=== PATIENT | male | born 1985 ===

== ENCOUNTER 2024-03-31 17:51 | Inpatient (IN) | payer OTHER, SELFPAY ==
--- NOTE | ~2024-03-31 | XR_ITS ---
EXAMINATION: XR HAND, RIGHT CLINICAL INFORMATION: Boxer's fracture. Continued pain one month after injury. COMPARISON: None available. TECHNIQUE: PA, lateral, and oblique views of the right hand. FINDINGS: There is a comminuted likely intra-articular fracture of the proximal fifth metacarpal. There is prominent lucency along the radial aspect of the metacarpal near the fracture which could reflect additional osteolysis. Possible posterior displacement of the distal fragment is suggested on the lateral projection. The remaining bones joints and soft tissues are unremarkable. XR/XR hand RT 2V IMPRESSION: Comminuted likely intra-articular fracture the proximal fifth metacarpal. No signs of fracture healing. Possible bone resorption/osteolysis in the area the fracture.
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
[2024-03-31 19:19] VITALS: BMI 57.8
[2024-03-31 22:00] VITALS: BP 119/75; PULSE 86; RESP 16; TEMP 37; O2SAT 98
[2024-03-31] MEDS: Milk of Magnesia 30 ML ORAL.SUSP PO (22:25)
[2024-03-31] MEDS: traZODone HCL 50 MG TABLET PO (22:25)
[2024-03-31] MEDS: hydrOXYzine HCL 25 MG TABLET PO (22:25)
[2024-04-01 07:00] VITALS: BMI 26.1
[2024-04-01 07:46] VITALS: BP 118/71; PULSE 81; RESP 16; TEMP 36.6; O2SAT 98
[2024-04-01] MEDS: hydrOXYzine HCL 25 MG TABLET PO (08:31)
[2024-04-01 08:51] LABS: Alanine Aminotransferase 54 U/L (0-40); Albumin Level 4.5 g/dL (3.5-5.0); Alkaline Phosphatase 112 U/L (39-117); Anion Gap 14 (12-20); Aspartate Amino Transferase 23 U/L (5-37); Bilirubin Total 0.2 mg/dL (0.0-1.0); Blood Urea Nitrogen 17 mg/dL (9-16); Calcium 9.4 mg/dL (8.4-10.2); Carbon Dioxide 25 mmol/L (22-29); Chloride 105 mmol/L (96-108); Cholesterol 181 mg/dL (<200); Creatinine Clr Calc Pharmacy 119.3; Estimated Glomerular Filt Rate > 60; Glucose Fasting 143 mg/dL (60-99); HDL Cholesterol 52 mg/dL (>40); LDL Cholesterol Calculated 97 mg/dL (<100); Potassium 3.7 mmol/L (3.3-5.1); Sodium 140 mmol/L (135-145); Total Protein 7.2 g/dL (6.5-8.0); Triglycerides 164 mg/dL (<150)
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
--- NOTE | 2024-04-01 11:28 | HO.PM.IMCN ---
History of Present Illness Data of Consult Service Date: 04/01/24 Primary Care Provider: Unknown Physician HPI Reason for consult: Admission H&P Pt is a 38-year-old male with a PMH significant for?hemophilia A, anxiety, depression, and bipolar disorder who is admitted to [facility] psychiatry unit for increasing depression with suicidal ideation. Patient was initially placed [facility] though sent back to the ED as [facility] was unable to administer proper medications for pt with hemophilia A should the need arise. Medical consult for admission H&P. ?Patient reports minor right hand pain that has been ongoing since right hand fracture sustained after punching a wall 2 weeks prior. Initially presented to the ED and was given a soft cast, the patient has yet to follow-up for additional imaging. No recent bleeding, though notes approximately 1 month ago cut himself in a suicide attempt on left forearm. No complications. Also reports has been feeling fatigued with low energy for the past few months. Patient has a PMH of hemophilia A on Advate prn. Follows with Dr. Mathis in Hematology at [facility]; last seen over 1 year ago. Denies chest pain/pressure, palpitations. No shortness a breath. Denies fever, chills, nausea, vomiting, abdominal pain. Chronic headaches. Labs reviewed, grossly unremarkable in largely WNL. H&H at [facility] 9.0/28.4. Vitals stable. Review of Systems Review of Systems: Right hand pain Chronic fatigue Chronic intermittent headaches PMFSH Medical History (Updated 04/01/24 @ 14:05 by TIKA Restrepo) Bipolar disorder Depression Anxiety Anemia Hemophilia A Social History Household Members: None Housing: Homeless Do you presently have visiting nurse or other home services: No Patient Tobacco Use Status: Former Tobacco user Tobacco use type: Cigarette Smoked in Last 30 Days: No e-Cigarette/Vaping Use: Former Use Patient Interested in Nicotine Replacement: No Patient Given Instructions on How to Stop Smoking: No Second Hand Smoke Exposure: No Use of substances other than those prescribed or required for medical reasons: Yes Substance Use Type: Marijuana Substance Use Frequency: Daily Last Used Substance: Just Prior to Admission Currently Displaying Signs/Symptoms of Drug Intoxication Withdrawal: No Any prior treatment program specific to substance use: No Have you been hit, kicked, punched, or otherwise hurt by someone within the past year? If so, by whom?: No Do you feel safe in your current relationship?: No Current Relationship Is there a partner from a previous relationship who is making you feel unsafe now?: No Are you made to feel afraid or neglected: No Advance Directives: No Advance Directives Information Provided: No Do you have thoughts of harming others: None Do you have a plan to hurt others: No Plan Recently lost weight without trying: No Eating poorly because of decreased appetite: No Nutrition Risks: No Nutritional Risk Poor oral hygiene: No Meds Allergies Allergy/AdvReac Type Severity Reaction Status Date / Time No Known Allergies Allergy Verified 03/31/24 18:10 Active Medications: Current Medications Acetaminophen (Acetaminophen 325 Mg Tablet) 650 mg PO Q6H PRN PRN Reason: Headache/Pain Mild Scale (1-3) Al Hydroxide/Mg Hydroxide (Magnesium Hydrox/Alum Hydrox 30 Ml Oral.Susp) 30 ml PO Q6H PRN PRN Reason: Heartburn/Nausea Hydroxyzine HCl (Hydroxyzine Hcl 25 Mg Tablet) 25 mg PO Q6H PRN PRN Reason: Anxiety Last Admin: 04/01/24 08:31 Dose: 25 mg Magnesium Hydroxide (Milk Of Magnesia 30 Ml Oral.Susp) 30 ml PO DAILY PRN PRN Reason: Constipation Last Admin: 03/31/24 22:25 Dose: 30 ml Trazodone HCl (Trazodone Hcl 50 Mg Tablet) 50 mg PO BEDTIME MRX1 PRN PRN Reason: Insomnia Last Admin: 03/31/24 22:25 Dose: 50 mg Physical Exam Vital Signs and Narrative: Vital Signs: Last Vital Signs Temp 97.8 F 04/01/24 07:46 Pulse 81 04/01/24 07:46 Resp 16 04/01/24 07:46 BP 118/71 04/01/24 07:46 Pulse Ox 98 04/01/24 07:46 O2 Del Method Room Air 04/01/24 07:46 BMI result Body Mass Index 26.1 General: AOx3, no acute distress Resp: CTA bilaterally CVS: S1, S2, RRR GI: +BS, NT, no distention Skin: Warm, dry Neuro: Cranial nerves II-XII grossly intact bilaterally. Motor grossly intact bilaterally Extremities: No edema. Right hand and wrist in soft cast. Left forearm with well-healed incision. No sign of infection. Psych: Appropriate affect Results Labs 04/01/24 08:14 Labs: Laboratory Results - last 24 hr 04/01/24 08:14 Anion Gap 14 Estim Creat Clear Calc 119.3 Estimated GFR > 60 Fasting Glucose 143 H Calcium 9.4 Total Bilirubin 0.2 AST 23 ALT 54 H Alkaline Phosphatase 112 Total Protein 7.2 Albumin 4.5 Triglycerides 164 H Cholesterol 181 LDL Cholesterol, Calc 97 HDL Cholesterol 52 Assessment and Plan (1) Medical clearance for psychiatric admission: Status: Acute Plan Pt is a 38-year-old male with a PMH significant for?hemophilia A, anxiety, depression, and bipolar disorder who is admitted to [facility] psychiatry unit for increasing depression with suicidal ideation. Patient was initially placed [facility] though sent back to the ED as [facility] was unable to administer proper medications for pt with hemophilia A should the need arise. Medical consult for admission H&P. Mood disorder Plan as per psychiatry Hemophilia A Pt follows with Dr. Mathis in hematology at [facility] On Advate prn which is not on formulary If pt starts bleeding consult with hematology Broken right hand Apparently from punching wall 2 weeks prior Continue soft splint Ortho consult if pt needs follow up while in the hospital Otherwise pt should f/u outpatient for repeat imaging Chronic intermittent headaches Acetaminophen p.r.n. Thank you for allowing us to participate in the care of this patient. Signing off at this time. Please re-consult if any acute complaints or issues arise.
[2024-04-01] MEDS: buPROPion HCL 75 MG TABLET PO (16:08)
[2024-04-01 20:00] VITALS: BP 123/60; PULSE 79; RESP 16; TEMP 37.1; O2SAT 98
[2024-04-01] MEDS: Milk of Magnesia 30 ML ORAL.SUSP PO (20:09)
[2024-04-01] MEDS: hydrOXYzine HCL 50 MG TABLET PO (20:09)
[2024-04-01] MEDS: traZODone HCL 50 MG TABLET PO (22:13)
--- NOTE | 2024-04-02 09:18 | HO.PSYCHPN ---
Subjective Subjective Date of Service: 04/02/24 Reason For Visit: Unspec depressive disorder Subjective Notes: Conditional Voluntary Interim History: Reviewed with Dr. Au. active on unit, social with peers. Pt reports he continues to feeling depressed ; pt stated, I know if I left here today, I would do something to hurt myself. I'm trying to be proactive and would like [facility] services . cable worker helper, Alondra, notified. Pt reports he is trying to be hopeful . pt denies HI/VH/AH. denies any side effects from medication. Medication Compliance: Yes Side effects from medications: No Attending Groups: Intermittent Review of Systems Constitutional: Reports as per HPI Eyes: Reports as per HPI Reports as per HPI Cardiovascular: Reports as per HPI Respiratory: Reports as per HPI Gastrointestinal: Reports as per HPI Genitourinary: Reports as per HPI Musculoskeletal: Reports as per HPI Skin/Breast: Reports as per HPI Reports as per HPI Psychiatric: Reports as per HPI Endocrine: Reports as per HPI Hematologic/Lymphatic: Reports as per HPI Allergic/Immunologic: Reports as per HPI Mental Status Exam Mental Status Exam Narrative: Pt is alert and oriented; behavior is cooperative and calm; dressed in casual attire; mood is described as depressed ; eye contact appropriate; Speech is normal rate, volume and not pressured, moderate speech inpediment; thought process is organized and goal directed; Thought content is on tx; otherwise pertinent to relevant topics and without any delusional content, paranoid ideations or grandiosity; denies HI/VH/AH. Pt reports suicidal ideation with no plan. Diagnostics Vital Signs (24Hr): Vital Signs - 24 hr 04/01/24 20:00 Temperature 98.8 F Pulse Rate 79 Respiratory Rate 16 Blood Pressure 123/60 Pulse Oximetry 98 Oxygen Delivery Method Room Air BMI result Body Mass Index 26.1 Labs 04/01/24 08:14 Labs: Laboratory Results - last 48 hr 04/01/24 08:14 Sodium 140 Potassium 3.7 Chloride 105 Carbon Dioxide 25 Anion Gap 14 BUN 17 H Creatinine 0.80 Estim Creat Clear Calc 119.3 Estimated GFR > 60 Fasting Glucose 143 H Calcium 9.4 Total Bilirubin 0.2 AST 23 ALT 54 H Alkaline Phosphatase 112 Total Protein 7.2 Albumin 4.5 Triglycerides 164 H Cholesterol 181 LDL Cholesterol, Calc 97 HDL Cholesterol 52 Medications Medications Current Medications Acetaminophen (Acetaminophen 325 Mg Tablet) 650 mg PO Q6H PRN PRN Reason: Headache/Pain Mild Scale (1-3) Al Hydroxide/Mg Hydroxide (Magnesium Hydrox/Alum Hydrox 30 Ml Oral.Susp) 30 ml PO Q6H PRN PRN Reason: Heartburn/Nausea Bupropion HCl (Bupropion Hcl 75 Mg Tablet) 75 mg PO BID@0800,1600 [facility] Last Admin: 04/01/24 16:08 Dose: 75 mg Hydroxyzine HCl (Hydroxyzine Hcl 50 Mg Tablet) 50 mg PO TID SUSY Last Admin: 04/01/24 20:09 Dose: 50 mg Magnesium Hydroxide (Milk Of Magnesia 30 Ml Oral.Susp) 30 ml PO DAILY PRN PRN Reason: Constipation Last Admin: 04/01/24 20:09 Dose: 30 ml Trazodone HCl (Trazodone Hcl 50 Mg Tablet) 50 mg PO BEDTIME MRX1 PRN PRN Reason: Insomnia Last Admin: 04/01/24 22:13 Dose: 50 mg Allergies Allergies Allergy/AdvReac Type Severity Reaction Status Date / Time No Known Allergies Allergy Verified 03/31/24 18:10 Assessment & Plan Assessment & Plan (1) MDD (major depressive disorder), recurrent episode, severe: Status: Acute Code(s): F33.2 - Major depressive disorder, recurrent severe without psychotic features (2) PTSD (post-traumatic stress disorder): Status: Acute Code(s): F43.10 - Post-traumatic stress disorder, unspecified (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 Plan: CV 15 minute safety checks encourage groups Start: Wellbutrin 75mg PO BID hydroxyzine 50mg PO TID discharge planning 04/02: active on unit, social with peers. Pt reports he continues to feeling depressed ; pt stated, I know if I left here today, I would do something to hurt myself. I'm trying to be proactive and would like [facility] services . cable worker helper, Alondra, notified. Pt reports he is trying to be hopeful . pt denies HI/VH/AH. denies any side effects from medication. continue current tx plan. Patient educated on: diagnosis, medication risk/benefits and therapeutic strategies Informed Consent: understands Reason for continued inpatient stay Substantial Risk for: harm to self and med/psych decompensation Time Spent With Patient Time: Total time managing care of this patient today _20___ minutes.
[2024-04-02] MEDS: hydrOXYzine HCL 50 MG TABLET PO ×3 (09:33→20:28)
[2024-04-02] MEDS: buPROPion HCL 75 MG TABLET PO ×2 (09:33→16:05)
[2024-04-02 19:52] VITALS: BP 106/60; PULSE 93; RESP 16; TEMP 37.4; O2SAT 98
--- NOTE | 2024-04-03 08:56 | P.PNPSI_ITS ---
Subjective Subjective Date of Service: 04/03/24 Reason For Visit: Unspec depressive disorder Interim History: Patient reports gradual improvement. He reports he was on a higher dose of Hydroxyzine in the past that had been more helpful for anxiety. (50 TID 9AM, 1PM and 5PM) and 100 mg HS and requesting same. Pt reports he is having vivid dreams. Reports trying Prazosin 1 mg but it wasn't effective. Later in the day, informed by RN that patient complained of bloody stool and rectal pain and was requesting a meeting with the hospitalist. pt denies HI/VH/AH. denies any side effects from medication. Review of Systems Review of Systems Right hand pain Chronic fatigue Chronic intermittent headaches Constitutional: Reports as per HPI Eyes: Reports as per HPI Reports as per HPI Cardiovascular: Reports as per HPI Respiratory: Reports as per HPI Gastrointestinal: Reports as per HPI Genitourinary: Reports as per HPI Musculoskeletal: Reports as per HPI Skin/Breast: Reports as per HPI Reports as per HPI Psychiatric: Reports as per HPI Endocrine: Reports as per HPI Hematologic/Lymphatic: Reports as per HPI Allergic/Immunologic: Reports as per HPI Mental Status Exam Mental Status Exam Narrative: Pt is alert and oriented; behavior is cooperative and calm; dressed in casual attire; mood is described as depressed ; eye contact appropriate; Speech is normal rate, volume and not pressured, moderate speech inpediment; thought process is organized and goal directed; Thought content is on tx; otherwise pertinent to relevant topics and without any delusional content, paranoid ideations or grandiosity; denies HI/VH/AH. Pt reports suicidal ideation with no plan. Diagnostics Vital Signs (24Hr): Vital Signs - 24 hr 04/02/24 19:52 Temperature 99.4 F Pulse Rate 93 Respiratory Rate 16 Blood Pressure 106/60 Pulse Oximetry 98 Oxygen Delivery Method Room Air BMI result Body Mass Index 26.1 Labs 04/01/24 08:14 Medications Medications Current Medications Acetaminophen (Acetaminophen 325 Mg Tablet) 650 mg PO Q6H PRN PRN Reason: Headache/Pain Mild Scale (1-3) Al Hydroxide/Mg Hydroxide (Magnesium Hydrox/Alum Hydrox 30 Ml Oral.Susp) 30 ml PO Q6H PRN PRN Reason: Heartburn/Nausea Bupropion HCl (Bupropion Hcl 75 Mg Tablet) 75 mg PO BID@0800,1600 SUSY Last Admin: 04/02/24 16:05 Dose: 75 mg Hydroxyzine HCl (Hydroxyzine Hcl 50 Mg Tablet) 50 mg PO TID SUSY Last Admin: 04/02/24 20:28 Dose: 50 mg Magnesium Hydroxide (Milk Of Magnesia 30 Ml Oral.Susp) 30 ml PO DAILY PRN PRN Reason: Constipation Last Admin: 04/01/24 20:09 Dose: 30 ml Trazodone HCl (Trazodone Hcl 50 Mg Tablet) 50 mg PO BEDTIME MRX1 PRN PRN Reason: Insomnia Last Admin: 04/01/24 22:13 Dose: 50 mg Allergies Allergies Allergy/AdvReac Type Severity Reaction Status Date / Time No Known Allergies Allergy Verified 03/31/24 18:10 Assessment & Plan Assessment & Plan (1) MDD (major depressive disorder), recurrent episode, severe: Status: Acute Code(s): F33.2 - Major depressive disorder, recurrent severe without psychotic features (2) PTSD (post-traumatic stress disorder): Status: Acute Code(s): F43.10 - Post-traumatic stress disorder, unspecified (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 Plan: CV 15 minute safety checks encourage groups Start: Wellbutrin 75mg PO BID hydroxyzine 50mg PO TID discharge planning 04/02: active on unit, social with peers. Pt reports he continues to feeling depressed ; pt stated, I know if I left here today, I would do something to hurt myself. I'm trying to be proactive and would like [facility] services . bridge maintenance worker, Alondra, notified. Pt reports he is trying to be hopeful . pt denies HI/VH/AH. denies any side effects from medication. continue current tx plan. 04/03: Increase Hydroxyzine to 50 mg TID and 100 mg HS. Hospitalist consult for bloody stools and rectal pain. Reason for continued inpatient stay Substantial Risk for: harm to self and rapid decompensation Time Spent With Patient Time: Total time managing care of this patient today ____ minutes.
[2024-04-03] MEDS: buPROPion HCL 75 MG TABLET PO ×2 (09:27→16:32)
[2024-04-03] MEDS: hydrOXYzine HCL 50 MG TABLET PO ×2 (09:27→15:47)
[2024-04-03 10:30] VITALS: BP 127/70; PULSE 82; RESP 16; TEMP 37; O2SAT 99
[2024-04-03] MEDS: traZODone HCL 50 MG TABLET PO (20:40)
[2024-04-03] MEDS: hydrOXYzine HCL 50 MG TABLET 100 MG PO (20:41)
[2024-04-03 20:45] VITALS: BP 129/80; PULSE 72; RESP 18; TEMP 36.7; O2SAT 99
[2024-04-04 09:00] VITALS: BP 112/55; PULSE 75; RESP 16; TEMP 36.8; O2SAT 97
[2024-04-04] MEDS: buPROPion HCL 75 MG TABLET PO (09:26)
[2024-04-04] MEDS: hydrOXYzine HCL 50 MG TABLET PO ×3 (09:26→17:02)
[2024-04-04] MEDS: Mineral Oil/Petrolatum,White 106 GM Tube 1 APPL TOPICAL (12:53)
[2024-04-04] MEDS: Milk of Magnesia 30 ML ORAL.SUSP PO (14:13)
--- NOTE | 2024-04-04 15:58 | P.PNPSI_ITS ---
Subjective Subjective Date of Service: 04/04/24 Reason For Visit: Unspec depressive disorder Interim History: Patient reports gradual improvement in mood. Complains of vivid dreams and says he tried Prazosin 1 mg but wasn't helpful. He is asking whether we can try a higher dose of Prazosin. Complains of bloody stools. Not new but worried about it. Also complaining of pain in his hand from his boxer's fracture. Complaining of dry feet. Increased Hydroxyzine helped with anxiety. Pt denies HI/VH/AH. denies any side effects from medication. Review of Systems Review of Systems Right hand pain Chronic fatigue Chronic intermittent headaches Constitutional: Reports as per HPI Eyes: Reports as per HPI Reports as per HPI Cardiovascular: Reports as per HPI Respiratory: Reports as per HPI Gastrointestinal: Reports as per HPI Genitourinary: Reports as per HPI Musculoskeletal: Reports as per HPI Skin/Breast: Reports as per HPI Reports as per HPI Psychiatric: Reports as per HPI Endocrine: Reports as per HPI Hematologic/Lymphatic: Reports as per HPI Allergic/Immunologic: Reports as per HPI Mental Status Exam Mental Status Exam Narrative: Pt is alert and oriented; behavior is cooperative and calm; dressed in casual attire; mood is described as depressed ; eye contact appropriate; Speech is normal rate, volume and not pressured, moderate speech inpediment; thought process is organized and goal directed; Thought content is on tx; otherwise pertinent to relevant topics and without any delusional content, paranoid ideations or grandiosity; denies HI/VH/AH. Pt reports suicidal ideation with no plan. Diagnostics Vital Signs (24Hr): Vital Signs - 24 hr 04/03/24 20:45 04/04/24 09:00 Temperature 98.1 F 98.3 F Pulse Rate 72 75 Respiratory Rate 18 16 Blood Pressure 129/80 112/55 L Pulse Oximetry 99 97 Oxygen Delivery Method Room Air Room Air BMI result Body Mass Index 26.1 Labs 04/01/24 08:14 Imaging Radiology Impressions: ITS Impressions Hand X-Ray 04/04/24 14:04 IMPRESSION: Comminuted likely intra-articular fracture the proximal fifth metacarpal. No signs of fracture healing. Possible bone resorption/osteolysis in the area the fracture. Medications Medications Current Medications Acetaminophen (Acetaminophen 325 Mg Tablet) 650 mg PO Q6H PRN PRN Reason: Headache/Pain Mild Scale (1-3) Al Hydroxide/Mg Hydroxide (Magnesium Hydrox/Alum Hydrox 30 Ml Oral.Susp) 30 ml PO Q6H PRN PRN Reason: Heartburn/Nausea Bupropion HCl (Bupropion Hcl 75 Mg Tablet) 75 mg PO BID@0900,1700 [facility] Last Admin: 04/04/24 09:26 Dose: 75 mg Hydroxyzine HCl (Hydroxyzine Hcl 50 Mg Tablet) 100 mg PO BEDTIME SUSY Last Admin: 04/03/24 20:41 Dose: 100 mg Hydroxyzine HCl (Hydroxyzine Hcl 50 Mg Tablet) 50 mg PO TID@0900,1300,1700 [facility] Last Admin: 04/04/24 12:53 Dose: 50 mg Magnesium Hydroxide (Milk Of Magnesia 30 Ml Oral.Susp) 30 ml PO DAILY PRN PRN Reason: Constipation Last Admin: 04/04/24 14:13 Dose: 30 ml Multi-Ingred Cream/Lotion/Oil/Oint (Mineral Oil/Petrolatum,White 106 Gm Tube) 1 appl TOPICAL DAILY SUSY; Protocol Prazosin HCl (Prazosin Hcl 1 Mg Capsule) 2 mg PO BEDTIME SUSY; Protocol Trazodone HCl (Trazodone Hcl 50 Mg Tablet) 50 mg PO BEDTIME MRX1 PRN PRN Reason: Insomnia Last Admin: 04/03/24 20:40 Dose: 50 mg Allergies Allergies Allergy/AdvReac Type Severity Reaction Status Date / Time No Known Allergies Allergy Verified 03/31/24 18:10 Assessment & Plan Assessment & Plan (1) MDD (major depressive disorder), recurrent episode, severe: Status: Acute Code(s): F33.2 - Major depressive disorder, recurrent severe without psychotic features (2) PTSD (post-traumatic stress disorder): Status: Acute Code(s): F43.10 - Post-traumatic stress disorder, unspecified (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 Plan: CV 15 minute safety checks encourage groups Start: Wellbutrin 75mg PO BID hydroxyzine 50mg PO TID discharge planning 04/02: active on unit, social with peers. Pt reports he continues to feeling depressed ; pt stated, I know if I left here today, I would do something to hurt myself. I'm trying to be proactive and would like [facility] services . construction pit worker, Alondra, notified. Pt reports he is trying to be hopeful . pt denies HI/VH/AH. denies any side effects from medication. continue current tx plan. 04/03: Increase Hydroxyzine to 50 mg TID and 100 mg HS. Hospitalist consult for bloody stools and rectal pain. 04/04: Consult Ortho for non-healing comminuted fx. Awaiting hospitalist input about bloody stools. Patient has no abdominal pain or N/V. Add Prazosin 2 mg HS. Reason for continued inpatient stay Substantial Risk for: harm to self, rapid decompensation and med/psych decompensation Time Spent With Patient Time: Total time managing care of this patient today ____ minutes.
[2024-04-04] MEDS: Acetaminophen 325 MG TABLET 650 MG PO (19:25)
[2024-04-04 20:00] VITALS: BP 108/66; PULSE 82; RESP 18; TEMP 36.9; O2SAT 96
[2024-04-04 21:50] VITALS: BP 123/73
[2024-04-04] MEDS: hydrOXYzine HCL 50 MG TABLET 100 MG PO (21:50)
[2024-04-04] MEDS: Prazosin HCL 1 MG CAPSULE 2 MG PO (21:50)
[2024-04-04] MEDS: traZODone HCL 50 MG TABLET PO (23:27)
[2024-04-05] MEDS: hydrOXYzine HCL 50 MG TABLET PO ×3 (09:07→18:09)
[2024-04-05] MEDS: buPROPion HCL 75 MG TABLET PO (09:07)
[2024-04-05] MEDS: Mineral Oil/Petrolatum,White 106 GM Tube 1 APPL TOPICAL (09:53)
--- NOTE | 2024-04-05 10:49 | HO.PSYCHPN ---
Subjective Subjective Date of Service: 04/05/24 Reason For Visit: Unspec depressive disorder Interim History: Patient reports he is anxious today. He is thinking about his medical trauma from having multiple medical problems and feeling he is not listened to. He feels hypervigilant. He is thankful that an orthopedics consult was placed and hopes they will come and see him. He has some constipation. He denies SI. Prazosin wasn't helpful for his vivid dreams. Says it mught be related to stopping MJ. Pt denies HI/VH/AH. denies any side effects from medication. Review of Systems Review of Systems Right hand pain Chronic fatigue Chronic intermittent headaches Constitutional: Reports as per HPI Eyes: Reports as per HPI Reports as per HPI Cardiovascular: Reports as per HPI Respiratory: Reports as per HPI Gastrointestinal: Reports as per HPI Genitourinary: Reports as per HPI Musculoskeletal: Reports as per HPI Skin/Breast: Reports as per HPI Reports as per HPI Psychiatric: Reports as per HPI Endocrine: Reports as per HPI Hematologic/Lymphatic: Reports as per HPI Allergic/Immunologic: Reports as per HPI Mental Status Exam Mental Status Exam Narrative: Pt is alert and oriented; behavior is cooperative and calm; dressed in casual attire; mood is described as depressed ; eye contact appropriate; Speech is normal rate, volume and not pressured, moderate speech inpediment; thought process is organized and goal directed; Thought content is on tx; otherwise pertinent to relevant topics and without any delusional content, paranoid ideations or grandiosity; denies HI/VH/AH. Pt reports suicidal ideation with no plan. Diagnostics Vital Signs (24Hr): Vital Signs - 24 hr 04/04/24 20:00 04/04/24 21:50 Temperature 98.5 F Pulse Rate 82 Respiratory Rate 18 Blood Pressure 108/66 123/73 Pulse Oximetry 96 Oxygen Delivery Method Room Air BMI result Body Mass Index 26.1 Labs 04/01/24 08:14 Imaging Radiology Impressions: ITS Impressions Hand X-Ray 04/04/24 14:04 IMPRESSION: Comminuted likely intra-articular fracture the proximal fifth metacarpal. No signs of fracture healing. Possible bone resorption/osteolysis in the area the fracture. Medications Medications Current Medications Acetaminophen (Acetaminophen 325 Mg Tablet) 650 mg PO Q6H PRN PRN Reason: Headache/Pain Mild Scale (1-3) Last Admin: 04/04/24 19:25 Dose: 650 mg Al Hydroxide/Mg Hydroxide (Magnesium Hydrox/Alum Hydrox 30 Ml Oral.Susp) 30 ml PO Q6H PRN PRN Reason: Heartburn/Nausea Bupropion HCl (Bupropion Hcl 75 Mg Tablet) 75 mg PO BID@0900,1700 [facility] Last Admin: 04/05/24 09:07 Dose: 75 mg Docusate Sodium (Docusate Sodium 100 Mg Capsule) 100 mg PO BID PRN PRN Reason: Constipation Hydroxyzine HCl (Hydroxyzine Hcl 50 Mg Tablet) 100 mg PO BEDTIME SUSY Last Admin: 04/04/24 21:50 Dose: 100 mg Hydroxyzine HCl (Hydroxyzine Hcl 50 Mg Tablet) 50 mg PO TID@0900,1300,1700 [facility] Last Admin: 04/05/24 09:07 Dose: 50 mg Magnesium Hydroxide (Milk Of Magnesia 30 Ml Oral.Susp) 30 ml PO DAILY PRN PRN Reason: Constipation Last Admin: 04/04/24 14:13 Dose: 30 ml Multi-Ingred Cream/Lotion/Oil/Oint (Mineral Oil/Petrolatum,White 106 Gm Tube) 1 appl TOPICAL DAILY SUSY; Protocol Last Admin: 04/05/24 09:53 Dose: 1 appl Prazosin HCl (Prazosin Hcl 1 Mg Capsule) 2 mg PO BEDTIME SUSY; Protocol Last Admin: 04/04/24 21:50 Dose: 2 mg Trazodone HCl (Trazodone Hcl 50 Mg Tablet) 50 mg PO BEDTIME MRX1 PRN PRN Reason: Insomnia Last Admin: 04/04/24 23:27 Dose: 50 mg Allergies Allergies Allergy/AdvReac Type Severity Reaction Status Date / Time No Known Allergies Allergy Verified 03/31/24 18:10 Assessment & Plan Assessment & Plan (1) MDD (major depressive disorder), recurrent episode, severe: Status: Acute Code(s): F33.2 - Major depressive disorder, recurrent severe without psychotic features (2) PTSD (post-traumatic stress disorder): Status: Acute Code(s): F43.10 - Post-traumatic stress disorder, unspecified (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 Plan: CV 15 minute safety checks encourage groups Start: Wellbutrin 75mg PO BID hydroxyzine 50mg PO TID discharge planning 04/02: active on unit, social with peers. Pt reports he continues to feeling depressed ; pt stated, I know if I left here today, I would do something to hurt myself. I'm trying to be proactive and would like [facility] services . switchboard wire worker helper, Alondra, notified. Pt reports he is trying to be hopeful . pt denies HI/VH/AH. denies any side effects from medication. continue current tx plan. 04/03: Increase Hydroxyzine to 50 mg TID and 100 mg HS. Hospitalist consult for bloody stools and rectal pain. 04/04: Consult Ortho for non-healing comminuted fx. Awaiting hospitalist input about bloody stools. Patient has no abdominal pain or N/V. Add Prazosin 2 mg HS. 04/05: Awaiting orthopedics consult. Clonidine 0.1 mg PRN anxiety. DC Prazosin as it was unhelpful. Reason for continued inpatient stay Substantial Risk for: harm to self, rapid decompensation and med/psych decompensation Time Spent With Patient Time: Total time managing care of this patient today ____ minutes.
[2024-04-05 12:00] VITALS: BP 112/56; PULSE 75; RESP 16; TEMP 36.9; O2SAT 98
[2024-04-05 12:11] VITALS: BP 112/56
[2024-04-05] MEDS: cloNIDine HCL 0.1 MG TABLET PO ×2 (12:11→19:56)
--- NOTE | 2024-04-05 19:19 | PC.NURSE ---
Approached desk at 1910, reporting increased pain in right hand/pinky area. Rated pain #7, stating he could tolerate pain better than others. Stated others would rate pain #10 on scale 1-10(10 worse). States pain feels like bones are grinding against each other. States mark's fracture is not healing correctly. Xray done yesterday, awaiting Orthopedic consult. States he has not utilized Tylenol as it does not work and is unable to take NSAIDS due to bleeding disorder. Has utilized Oxycodone when he initially fractured hand. Unable to utilize spint at present time and is keeping hand still by elevating it. Melissa Lopez notified of pt's report of pain with question of what med to utilize for pain via [employer] connect. Waiting for response.
[2024-04-05] MEDS: traMADoL HCL 50 MG TABLET 25 MG PO (19:54)
[2024-04-05 19:55] VITALS: BP 111/58; PULSE 78; RESP 16; TEMP 37; O2SAT 97
[2024-04-05] MEDS: traZODone HCL 50 MG TABLET PO (21:16)
[2024-04-05] MEDS: hydrOXYzine HCL 50 MG TABLET 100 MG PO (21:17)
[2024-04-05] MEDS: Acetaminophen 325 MG TABLET 650 MG PO (21:17)
--- NOTE | 2024-04-06 00:12 | PC.NURSE ---
Saroj reporting elevated pain in his right wrist/hand. Patient aware Tylenol given for pain 1-3, but requested it because he reports he can only take certain types of pain medications and felt the Tylenol may assist the tramadol he took 2 hour prior to help reduce the pain even further.
[2024-04-06] MEDS: traMADoL HCL 50 MG TABLET 25 MG PO ×4 (03:08→23:11)
[2024-04-06 08:00] VITALS: BP 113/61; PULSE 78; RESP 16; TEMP 36.4; O2SAT 97
[2024-04-06] MEDS: buPROPion HCL 75 MG TABLET PO (10:14)
[2024-04-06] MEDS: hydrOXYzine HCL 50 MG TABLET PO ×3 (10:15→17:06)
[2024-04-06] MEDS: Acetaminophen 325 MG TABLET 650 MG PO ×3 (10:15→23:11)
[2024-04-06] MEDS: Mineral Oil/Petrolatum,White 106 GM Tube 1 APPL TOPICAL (10:16)
--- NOTE | 2024-04-06 10:42 | PC.NURSE ---
Pt c/o 05/19 right hand pain, requested and received Tramadol. Pt also requested to take Tylenol at the same time because I'm not getting a lot of relief from the tramadol and taking it with tylenol helps a lot. Pt aware of 1-3 pain scale and requested and received Tylenol PRN.
--- NOTE | 2024-04-06 13:45 | P.CONOP_ITS ---
History of Present Illness HPI Consult date: 04/06/24 Chief complaint: Unspec depressive disorder Narrative: 38 yo male admitted to psych unit. He states he was involved in an incident 2 weeks ago which resulted in fracture at the base of the 4th and 5th metacarpal. He is wearing a fabricated ulnar gutter splint. He c/o mild discomfort. XR hand RT 2V 04/04/24 IMPRESSION: Comminuted likely intra-articular fracture the proximal fifth metacarpal. No signs of fracture healing. Possible bone resorption/osteolysis in the area the fracture. Review of Systems 2 Review of Systems: Yes all other systems are reviewed and are negative [facility] Past Medical History Medical History (Updated 04/06/24 @ 13:53 by Kaila Ramos PA-C) Bipolar disorder Depression Anxiety Anemia Hemophilia A Social History Social History Household Members: None Housing: Homeless Do you presently have visiting nurse or other home services: No Patient Tobacco Use Status: Former Tobacco user Tobacco use type: Cigarette Smoked in Last 30 Days: No e-Cigarette/Vaping Use: Former Use Patient Interested in Nicotine Replacement: No Patient Given Instructions on How to Stop Smoking: No Second Hand Smoke Exposure: No Use of substances other than those prescribed or required for medical reasons: Yes Substance Use Type: Marijuana Substance Use Frequency: Daily Last Used Substance: Just Prior to Admission Currently Displaying Signs/Symptoms of Drug Intoxication Withdrawal: No Any prior treatment program specific to substance use: No Have you been hit, kicked, punched, or otherwise hurt by someone within the past year? If so, by whom?: No Do you feel safe in your current relationship?: No Current Relationship Is there a partner from a previous relationship who is making you feel unsafe now?: No Are you made to feel afraid or neglected: No Advance Directives: No Advance Directives Information Provided: No Do you have thoughts of harming others: None Do you have a plan to hurt others: No Plan Recently lost weight without trying: No Eating poorly because of decreased appetite: No Nutrition Risks: No Nutritional Risk Poor oral hygiene: No service: No Sexual orientation: Don't Know Meds Allergies Allergy/AdvReac Type Severity Reaction Status Date / Time No Known Allergies Allergy Verified 03/31/24 18:10 Active Medications: Current Medications Acetaminophen (Acetaminophen 325 Mg Tablet) 650 mg PO Q6H PRN PRN Reason: Headache/Pain Mild Scale (1-3) Last Admin: 04/06/24 10:15 Dose: 650 mg Al Hydroxide/Mg Hydroxide (Magnesium Hydrox/Alum Hydrox 30 Ml Oral.Susp) 30 ml PO Q6H PRN PRN Reason: Heartburn/Nausea Bupropion HCl (Bupropion Hcl 75 Mg Tablet) 75 mg PO BID@0900,1700 [facility] Last Admin: 04/06/24 10:14 Dose: 75 mg Clonidine HCl (Clonidine Hcl 0.1 Mg Tablet) 0.1 mg PO BID PRN; Protocol PRN Reason: Anxiety Last Admin: 04/05/24 19:56 Dose: 0.1 mg Docusate Sodium (Docusate Sodium 100 Mg Capsule) 100 mg PO BID PRN PRN Reason: Constipation Hydroxyzine HCl (Hydroxyzine Hcl 50 Mg Tablet) 100 mg PO BEDTIME [facility] Last Admin: 04/05/24 21:17 Dose: 100 mg Hydroxyzine HCl (Hydroxyzine Hcl 50 Mg Tablet) 50 mg PO TID@0900,1300,1700 [facility] Last Admin: 04/06/24 10:15 Dose: 50 mg Magnesium Hydroxide (Milk Of Magnesia 30 Ml Oral.Susp) 30 ml PO DAILY PRN PRN Reason: Constipation Last Admin: 04/04/24 14:13 Dose: 30 ml Multi-Ingred Cream/Lotion/Oil/Oint (Mineral Oil/Petrolatum,White 106 Gm Tube) 1 appl TOPICAL DAILY [facility]; Protocol Last Admin: 04/06/24 10:16 Dose: 1 appl Tramadol HCl (Tramadol Hcl 50 Mg Tablet) 25 mg PO Q6H PRN PRN Reason: Pain, Severe (Pain Scale 7-10) Last Admin: 04/06/24 10:14 Dose: 25 mg Trazodone HCl (Trazodone Hcl 50 Mg Tablet) 50 mg PO BEDTIME MRX1 PRN PRN Reason: Insomnia Last Admin: 04/05/24 21:16 Dose: 50 mg Physical Exam 2 Vital Signs: Vital Signs: Last Vital Signs Temp 97.6 F 04/06/24 08:00 Pulse 78 04/06/24 08:00 Resp 16 04/06/24 08:00 BP 113/61 04/06/24 08:00 Pulse Ox 97 04/06/24 08:00 O2 Del Method Room Air 04/06/24 08:00 BMI result Body Mass Index 26.1 Const: General: cooperative, healthy appearing, comfortable and no acute distress Extrem: Other: Right hand normal to inspection. He has pain at the base of the 4th and 5th metacarpal with slight bony prominence. No breakdown of skin. NVI. Results Labs 04/01/24 08:14 Labs: All other labs normal. Assessment and Plan (1) Metacarpal bone fracture: Status: Acute Plan Discussed case with Dr Gutierrez -patient is homeless and psych plan is to dc to a assisted in [place] -given the above situation recommend continued use of a splint -no lifting, carrying, pusing or pulling greater than a cell phine -f/u with ortho in 2-3 weeks with xrays Procedures Date of Service Date of Service: 04/06/24
[2024-04-06 13:49] VITALS: BP 113/60
[2024-04-06] MEDS: cloNIDine HCL 0.1 MG TABLET PO ×2 (13:49→21:02)
[2024-04-06] MEDS: Benzocaine 20 % Oral Gel 9 GM TUBE 1 APPL MUCOUS MEM ×2 (17:23→21:02)
--- NOTE | 2024-04-06 17:27 | P.PNPSI_ITS ---
Subjective Subjective Date of Service: 04/06/24 Reason For Visit: Unspec depressive disorder Interim History: c/o pain in his wrist. interested in all wellbutrin in one dose, agrees to take 150 XL in the morning. c/o dental pain, agrees to oragel for now. per staff, anxious, taking meds. refusing HS wellbutrin. anxious affect. c/o dental pain, wrist pain. got tylenol, trazodone, and tramadol. Mental Status Exam Mental Status Exam Narrative: Pt is alert and oriented; behavior is cooperative and calm; dressed in casual attire; mood is described as depressed; eye contact appropriate; Speech is normal rate, volume and not pressured, moderate speech impediment; thought process is organized and goal directed; Thought content is on tx; otherwise pertinent to relevant topics and without any delusional content, paranoid ideations or grandiosity; no SI/HI/AVH expressed. Diagnostics Vital Signs (24Hr): Vital Signs - 24 hr 04/05/24 19:55 04/06/24 08:00 04/06/24 13:49 Temperature 98.6 F 97.6 F Pulse Rate 78 78 Respiratory Rate 16 16 Blood Pressure 111/58 L 113/61 113/60 Pulse Oximetry 97 97 Oxygen Delivery Method Room Air Room Air BMI result Body Mass Index 26.1 Labs 04/01/24 08:14 Imaging Radiology Impressions: ITS Impressions Hand X-Ray 04/04/24 14:04 IMPRESSION: Comminuted likely intra-articular fracture the proximal fifth metacarpal. No signs of fracture healing. Possible bone resorption/osteolysis in the area the fracture. Medications Medications Current Medications Acetaminophen (Acetaminophen 325 Mg Tablet) 650 mg PO Q6H PRN PRN Reason: Headache/Pain Mild Scale (1-3) Last Admin: 04/06/24 17:06 Dose: 650 mg Al Hydroxide/Mg Hydroxide (Magnesium Hydrox/Alum Hydrox 30 Ml Oral.Susp) 30 ml PO Q6H PRN PRN Reason: Heartburn/Nausea Benzocaine (Benzocaine 20 % Oral Gel 9 Gm Tube) 1 appl MUCOUS MEM QID PRN; Protocol PRN Reason: dental pain Last Admin: 04/06/24 17:23 Dose: 1 appl Bupropion HCl (Bupropion Hcl Xl 150 Mg Tab.Er.24h) 150 mg PO DAILY SUSY Clonidine HCl (Clonidine Hcl 0.1 Mg Tablet) 0.1 mg PO BID PRN; Protocol PRN Reason: Anxiety Last Admin: 04/06/24 13:49 Dose: 0.1 mg Docusate Sodium (Docusate Sodium 100 Mg Capsule) 100 mg PO BID PRN PRN Reason: Constipation Hydroxyzine HCl (Hydroxyzine Hcl 50 Mg Tablet) 100 mg PO BEDTIME S[facility] Last Admin: 04/05/24 21:17 Dose: 100 mg Hydroxyzine HCl (Hydroxyzine Hcl 50 Mg Tablet) 50 mg PO TID@0900,1300,1700 [facility] Last Admin: 04/06/24 17:06 Dose: 50 mg Magnesium Hydroxide (Milk Of Magnesia 30 Ml Oral.Susp) 30 ml PO DAILY PRN PRN Reason: Constipation Last Admin: 04/04/24 14:13 Dose: 30 ml Multi-Ingred Cream/Lotion/Oil/Oint (Mineral Oil/Petrolatum,White 106 Gm Tube) 1 appl TOPICAL DAILY [facility]; Protocol Last Admin: 04/06/24 10:16 Dose: 1 appl Tramadol HCl (Tramadol Hcl 50 Mg Tablet) 25 mg PO Q6H PRN PRN Reason: Pain, Severe (Pain Scale 7-10) Last Admin: 04/06/24 17:06 Dose: 25 mg Trazodone HCl (Trazodone Hcl 50 Mg Tablet) 50 mg PO BEDTIME MRX1 PRN PRN Reason: Insomnia Last Admin: 04/05/24 21:16 Dose: 50 mg Allergies Allergies Allergy/AdvReac Type Severity Reaction Status Date / Time No Known Allergies Allergy Verified 03/31/24 18:10 Assessment & Plan Assessment & Plan (1) MDD (major depressive disorder), recurrent episode, severe: Status: Acute Code(s): F33.2 - Major depressive disorder, recurrent severe without psychotic features (2) PTSD (post-traumatic stress disorder): Status: Acute Code(s): F43.10 - Post-traumatic stress disorder, unspecified (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 Plan: CV 15 minute safety checks encourage groups Start: Wellbutrin 75mg PO BID hydroxyzine 50mg PO TID discharge planning 04/02: active on unit, social with peers. Pt reports he continues to feeling depressed ; pt stated, I know if I left here today, I would do something to hurt myself. I'm trying to be proactive and would like [facility] services . television maintenance worker, Alondra, notified. Pt reports he is trying to be hopeful . pt denies HI/VH/AH. denies any side effects from medication. continue current tx plan. 04/06: stable. no complaints or requests. change wellbutrin to XL and give all 150 mg in the morning, per pt request. add oragel for dental pain. otherwise continue current mgmt. Reason for continued inpatient stay Substantial Risk for: inability to function and rapid decompensation Time Spent With Patient Time: Total time managing care of this patient today __25__ minutes.
[2024-04-06 20:55] VITALS: BP 101/58; PULSE 68; RESP 16; TEMP 36.9; O2SAT 98
[2024-04-06] MEDS: traZODone HCL 50 MG TABLET PO (21:02)
[2024-04-06] MEDS: hydrOXYzine HCL 50 MG TABLET 100 MG PO (21:02)
--- NOTE | 2024-04-06 21:06 | PC.NURSE ---
Shakir reporting elevated anxiety, was given clonidine PO prn . Also, patient given Trazodone PO prn for sleep.
--- NOTE | 2024-04-06 23:16 | PC.NURSE ---
Saroj requested to be given the Tylenol with the Tramadol PO prn. Patient was informed of the Tylenol pain level of 1-3. Patient reports that the 25 mg of Tramdol is helpful, but when combined with the Tylenol it is more effective at reducing his pain level.
[2024-04-07 08:00] VITALS: BP 121/62; PULSE 73; RESP 18; TEMP 36.6; O2SAT 98
[2024-04-07] MEDS: traMADoL HCL 50 MG TABLET 25 MG PO ×2 (09:06→14:45)
[2024-04-07] MEDS: hydrOXYzine HCL 50 MG TABLET PO ×3 (09:07→17:03)
[2024-04-07] MEDS: buPROPion HCl XL 150 MG TAB.ER.24H PO (09:07)
[2024-04-07] MEDS: Acetaminophen 325 MG TABLET 650 MG PO ×3 (09:09→21:04)
[2024-04-07] MEDS: Docusate Sodium 100 MG CAPSULE PO (11:03)
[2024-04-07] MEDS: Mineral Oil/Petrolatum,White 106 GM Tube 1 APPL TOPICAL (11:03)
--- NOTE | 2024-04-07 15:13 | P.PNPSI_ITS ---
Subjective Subjective Date of Service: 04/07/24 Reason For Visit: Unspec depressive disorder Interim History: interested in getting pointed in the right direction re his state ID prior to discharge, and wants to discharge prior to appointments next week in the [place] area. c/o nightmares in trazodone, agrees to trial of remeron instead. some concern for weight gain. per staff, brighter affect. using PRNs. slept 6-7 hours. c/o wrist pain. Mental Status Exam Mental Status Exam Narrative: Pt is alert and oriented; behavior is cooperative and calm; dressed in casual attire; eye contact appropriate; Speech is normal rate, volume and not pressured, moderate speech impediment; thought process is organized and goal directed; Thought content is on tx; otherwise pertinent to relevant topics and without any delusional content, paranoid ideations or grandiosity; no SI/HI/AVH expressed. Diagnostics Vital Signs (24Hr): Vital Signs - 24 hr 04/06/24 20:55 04/07/24 08:00 Temperature 98.4 F 97.9 F Pulse Rate 68 73 Respiratory Rate 16 18 Blood Pressure 101/58 L 121/62 Pulse Oximetry 98 98 Oxygen Delivery Method Room Air Room Air BMI result Body Mass Index 26.1 Labs 04/01/24 08:14 Imaging Radiology Impressions: ITS Impressions Hand X-Ray 04/04/24 14:04 IMPRESSION: Comminuted likely intra-articular fracture the proximal fifth metacarpal. No signs of fracture healing. Possible bone resorption/osteolysis in the area the fracture. Medications Medications Current Medications Acetaminophen (Acetaminophen 325 Mg Tablet) 650 mg PO Q6H PRN PRN Reason: Headache/Pain Mild Scale (1-3) Last Admin: 04/07/24 14:46 Dose: 650 mg Al Hydroxide/Mg Hydroxide (Magnesium Hydrox/Alum Hydrox 30 Ml Oral.Susp) 30 ml PO Q6H PRN PRN Reason: Heartburn/Nausea Benzocaine (Benzocaine 20 % Oral Gel 9 Gm Tube) 1 appl MUCOUS MEM QID PRN; Protocol PRN Reason: dental pain Last Admin: 04/06/24 21:02 Dose: 1 appl Bupropion HCl (Bupropion Hcl Xl 150 Mg Tab.Er.24h) 150 mg PO DAILY SUSY Last Admin: 04/07/24 09:07 Dose: 150 mg Clonidine HCl (Clonidine Hcl 0.1 Mg Tablet) 0.1 mg PO BID PRN; Protocol PRN Reason: Anxiety Last Admin: 04/06/24 21:02 Dose: 0.1 mg Docusate Sodium (Docusate Sodium 100 Mg Capsule) 100 mg PO BID PRN PRN Reason: Constipation Last Admin: 04/07/24 11:03 Dose: 100 mg Hydroxyzine HCl (Hydroxyzine Hcl 50 Mg Tablet) 100 mg PO BEDTIME SUSY Last Admin: 04/06/24 21:02 Dose: 100 mg Hydroxyzine HCl (Hydroxyzine Hcl 50 Mg Tablet) 50 mg PO TID@0900,1300,1700 SUSY Last Admin: 04/07/24 12:52 Dose: 50 mg Magnesium Hydroxide (Milk Of Magnesia 30 Ml Oral.Susp) 30 ml PO DAILY PRN PRN Reason: Constipation Last Admin: 04/04/24 14:13 Dose: 30 ml Mirtazapine (Mirtazapine 15 Mg Tablet) 15 mg PO BEDTIME SUSY Mirtazapine (Mirtazapine 15 Mg Tablet) 15 mg PO BEDTIME PRN PRN Reason: insomnia Multi-Ingred Cream/Lotion/Oil/Oint (Mineral Oil/Petrolatum,White 106 Gm Tube) 1 appl TOPICAL DAILY SUSY; Protocol Last Admin: 04/07/24 11:03 Dose: 1 appl Tramadol HCl (Tramadol Hcl 50 Mg Tablet) 25 mg PO Q6H PRN PRN Reason: Pain, Severe (Pain Scale 7-10) Last Admin: 04/07/24 14:45 Dose: 25 mg Allergies Allergies Allergy/AdvReac Type Severity Reaction Status Date / Time No Known Allergies Allergy Verified 03/31/24 18:10 Assessment & Plan Assessment & Plan (1) MDD (major depressive disorder), recurrent episode, severe: Status: Acute Code(s): F33.2 - Major depressive disorder, recurrent severe without psychotic features (2) PTSD (post-traumatic stress disorder): Status: Acute Code(s): F43.10 - Post-traumatic stress disorder, unspecified (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 Plan: CV 15 minute safety checks encourage groups Start: Wellbutrin 75mg PO BID hydroxyzine 50mg PO TID discharge planning 04/02: active on unit, social with peers. Pt reports he continues to feeling depressed ; pt stated, I know if I left here today, I would do something to hurt myself. I'm trying to be proactive and would like [facility] services . supervisor park workers, Alondra, notified. Pt reports he is trying to be hopeful . pt denies HI/VH/AH. denies any side effects from medication. continue current tx plan. 04/06: stable. no complaints or requests. change wellbutrin to XL and give all 150 mg in the morning, per pt request. add oragel for dental pain. otherwise continue current mgmt. 04/07: DC trazodone for nightmares, start remeron trial. otherwise continue current mgmt. provide info for getting ID, discharge prior to appointment next . planning for friday at the moment. Reason for continued inpatient stay Substantial Risk for: rapid decompensation Time Spent With Patient Time: Total time managing care of this patient today __25__ minutes.
[2024-04-07 20:00] VITALS: BP 107/58; PULSE 64; RESP 16; TEMP 36.8; O2SAT 98
[2024-04-07] MEDS: traMADoL HCL 50 MG TABLET PO (21:03)
[2024-04-07] MEDS: hydrOXYzine HCL 50 MG TABLET 100 MG PO (21:04)
[2024-04-07] MEDS: Mirtazapine 15 MG TABLET PO (21:05)
--- NOTE | 2024-04-08 09:13 | HO.PSYCHPN ---
Subjective Subjective Date of Service: 04/08/24 Reason For Visit: Unspec depressive disorder Subjective Notes: Conditional Voluntary Interim History: Reviewed with Dr. Au. Social with peers. attending groups. future oriented. Pt reports feeling good today; pt stated, I feel like the meds are helping a lot. The Wellbutrin is giving me energy and I'm focused on improving my life. I'm trying to mentally prepare for leaving on Friday . Pt denies SI/HI/VH/AH. pt reports sleeping well. Medication Compliance: Yes Side effects from medications: No Attending Groups: Yes Review of Systems Constitutional: Reports as per HPI Eyes: Reports as per HPI Reports as per HPI Cardiovascular: Reports as per HPI Respiratory: Reports as per HPI Gastrointestinal: Reports as per HPI Genitourinary: Reports as per HPI Musculoskeletal: Reports as per HPI Skin/Breast: Reports as per HPI Reports as per HPI Psychiatric: Reports as per HPI Endocrine: Reports as per HPI Hematologic/Lymphatic: Reports as per HPI Allergic/Immunologic: Reports as per HPI Mental Status Exam Mental Status Exam Narrative: Pt is alert and oriented; behavior is cooperative, friendly and calm; dressed in casual attire; mood is described as good ; eye contact appropriate; Speech is normal rate, volume and prosody and not pressured; thought process is organized and goal directed; Thought content is on tx; otherwise pertinent to relevant topics and without any delusional content, paranoid ideations or grandiosity; denies SI/HI/VH/AH. Diagnostics Vital Signs (24Hr): Vital Signs - 24 hr 04/07/24 20:00 Temperature 98.3 F Pulse Rate 64 Respiratory Rate 16 Blood Pressure 107/58 L Pulse Oximetry 98 Oxygen Delivery Method Room Air BMI result Body Mass Index 26.1 Labs 04/01/24 08:14 Imaging Radiology Impressions: ITS Impressions Hand X-Ray 04/04/24 14:04 IMPRESSION: Comminuted likely intra-articular fracture the proximal fifth metacarpal. No signs of fracture healing. Possible bone resorption/osteolysis in the area the fracture. Medications Medications Current Medications Acetaminophen (Acetaminophen 325 Mg Tablet) 650 mg PO Q6H PRN PRN Reason: Headache/Pain Mild Scale (1-3) Last Admin: 04/07/24 21:04 Dose: 650 mg Al Hydroxide/Mg Hydroxide (Magnesium Hydrox/Alum Hydrox 30 Ml Oral.Susp) 30 ml PO Q6H PRN PRN Reason: Heartburn/Nausea Benzocaine (Benzocaine 20 % Oral Gel 9 Gm Tube) 1 appl MUCOUS MEM QID PRN; Protocol PRN Reason: dental pain Last Admin: 04/06/24 21:02 Dose: 1 appl Bupropion HCl (Bupropion Hcl Xl 150 Mg Tab.Er.24h) 150 mg PO DAILY SUSY Last Admin: 04/07/24 09:07 Dose: 150 mg Clonidine HCl (Clonidine Hcl 0.1 Mg Tablet) 0.1 mg PO BID PRN; Protocol PRN Reason: Anxiety Last Admin: 04/06/24 21:02 Dose: 0.1 mg Docusate Sodium (Docusate Sodium 100 Mg Capsule) 100 mg PO BID PRN PRN Reason: Constipation Last Admin: 04/07/24 11:03 Dose: 100 mg Hydroxyzine HCl (Hydroxyzine Hcl 50 Mg Tablet) 100 mg PO BEDTIME SUSY Last Admin: 04/07/24 21:04 Dose: 100 mg Hydroxyzine HCl (Hydroxyzine Hcl 50 Mg Tablet) 50 mg PO TID@0900,1300,1700 SUSY Last Admin: 04/07/24 17:03 Dose: 50 mg Magnesium Hydroxide (Milk Of Magnesia 30 Ml Oral.Susp) 30 ml PO DAILY PRN PRN Reason: Constipation Last Admin: 04/04/24 14:13 Dose: 30 ml Mirtazapine (Mirtazapine 15 Mg Tablet) 15 mg PO BEDTIME SUSY Last Admin: 04/07/24 21:05 Dose: 15 mg Mirtazapine (Mirtazapine 15 Mg Tablet) 15 mg PO BEDTIME PRN PRN Reason: insomnia Multi-Ingred Cream/Lotion/Oil/Oint (Mineral Oil/Petrolatum,White 106 Gm Tube) 1 appl TOPICAL DAILY SUSY; Protocol Last Admin: 04/07/24 11:03 Dose: 1 appl Tramadol HCl (Tramadol Hcl 50 Mg Tablet) 50 mg PO Q4H PRN PRN Reason: Pain, Severe (Pain Scale 7-10) Last Admin: 04/07/24 21:03 Dose: 50 mg Allergies Allergies Allergy/AdvReac Type Severity Reaction Status Date / Time No Known Allergies Allergy Verified 03/31/24 18:10 Assessment & Plan Assessment & Plan (1) MDD (major depressive disorder), recurrent episode, severe: Status: Acute Code(s): F33.2 - Major depressive disorder, recurrent severe without psychotic features (2) PTSD (post-traumatic stress disorder): Status: Acute Code(s): F43.10 - Post-traumatic stress disorder, unspecified (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 Plan: CV 15 minute safety checks encourage groups Start: Wellbutrin 75mg PO BID hydroxyzine 50mg PO TID discharge planning 04/02: active on unit, social with peers. Pt reports he continues to feeling depressed ; pt stated, I know if I left here today, I would do something to hurt myself. I'm trying to be proactive and would like [facility] services . supervisor fur floor worker, Alondra, notified. Pt reports he is trying to be hopeful . pt denies HI/VH/AH. denies any side effects from medication. continue current tx plan. 04/06: stable. no complaints or requests. change wellbutrin to XL and give all 150 mg in the morning, per pt request. add oragel for dental pain. otherwise continue current mgmt. 04/07: DC trazodone for nightmares, start remeron trial. otherwise continue current mgmt. provide info for getting ID, discharge prior to appointment next . planning for friday at the moment. 04/08: Social with peers. attending groups. future oriented. Pt reports feeling good today; pt stated, I feel like the meds are helping a lot. The Wellbutrin is giving me energy and I'm focused on improving my life. I'm trying to mentally prepare for leaving on Friday . Pt denies SI/HI/VH/AH. pt reports sleeping well. Patient educated on: diagnosis, medication risk/benefits and therapeutic strategies Informed Consent: understands Reason for continued inpatient stay Substantial Risk for: med/psych decompensation Time Spent With Patient Time: Total time managing care of this patient today _20___ minutes.
[2024-04-08] MEDS: hydrOXYzine HCL 50 MG TABLET PO ×3 (09:33→17:04)
[2024-04-08] MEDS: traMADoL HCL 50 MG TABLET PO ×3 (09:34→18:43)
[2024-04-08] MEDS: Acetaminophen 325 MG TABLET 650 MG PO ×3 (09:34→21:28)
[2024-04-08] MEDS: buPROPion HCl XL 150 MG TAB.ER.24H PO (09:34)
[2024-04-08] MEDS: Docusate Sodium 100 MG CAPSULE PO ×2 (10:00→18:43)
[2024-04-08] MEDS: Mineral Oil/Petrolatum,White 106 GM Tube 1 APPL TOPICAL (10:00)
[2024-04-08 10:23] VITALS: BMI 26.6
[2024-04-08 12:37] VITALS: BP 112/73; PULSE 77; RESP 18; TEMP 36.8; O2SAT 97
[2024-04-08 18:48] VITALS: BP 134/80
[2024-04-08] MEDS: cloNIDine HCL 0.1 MG TABLET PO (18:48)
[2024-04-08 20:00] VITALS: RESP 18
[2024-04-08] MEDS: Mirtazapine 30 MG TABLET PO (21:29)
[2024-04-08] MEDS: hydrOXYzine HCL 50 MG TABLET 100 MG PO (21:29)
[2024-04-09 02:48] VITALS: BP 136/85; PULSE 73
[2024-04-09] MEDS: traMADoL HCL 50 MG TABLET PO ×3 (02:55→18:21)
[2024-04-09] MEDS: cloNIDine HCL 0.1 MG TABLET PO (02:55)
[2024-04-09 08:00] VITALS: BP 104/65; PULSE 78; RESP 16; TEMP 36.8; O2SAT 99
--- NOTE | 2024-04-09 08:53 | P.PNPSI_ITS ---
Subjective Subjective Date of Service: 04/09/24 Reason For Visit: Unspec depressive disorder Subjective Notes: Conditional Voluntary Interim History: Reviewed with Dr. Au. Pt reports feeling miserable today; pt stated, I keep having nightmares and I wake up tired and irritated . Pt reports he no longer wants to take Remeron or clonidine d/t feeling they are not helping me ; pt requesting to trial Prozosin;risks/benefits reviewed. Pt continues to report feeling anxious about going to the senior care but trying to stay hopeful . Pt denies SI/HI/VH/AH. DC Remeron DC clonidine Start: Prozosin 2mg PO bedtime; monitor vitals. Medication Compliance: Yes Side effects from medications: No Attending Groups: Yes Review of Systems Constitutional: Reports as per HPI Eyes: Reports as per HPI Reports as per HPI Cardiovascular: Reports as per HPI Respiratory: Reports as per HPI Gastrointestinal: Reports as per HPI Genitourinary: Reports as per HPI Musculoskeletal: Reports as per HPI Skin/Breast: Reports as per HPI Reports as per HPI Psychiatric: Reports as per HPI Endocrine: Reports as per HPI Hematologic/Lymphatic: Reports as per HPI Allergic/Immunologic: Reports as per HPI Mental Status Exam Mental Status Exam Narrative: Pt is alert and oriented; behavior is cooperative, friendly and calm; dressed in casual attire; mood is described as miserable ; eye contact appropriate; Speech is normal rate, volume and prosody and not pressured; thought process is organized and goal directed; Thought content is on tx; otherwise pertinent to relevant topics and without any delusional content, paranoid ideations or grandiosity; denies SI/HI/VH/AH. Diagnostics Vital Signs (24Hr): Vital Signs - 24 hr 04/08/24 12:37 04/08/24 18:48 04/08/24 20:00 Temperature 98.3 F Pulse Rate 77 Respiratory Rate 18 18 Blood Pressure 112/73 134/80 Pulse Oximetry 97 Oxygen Delivery Method Room Air 04/09/24 02:48 Temperature Pulse Rate 73 Respiratory Rate Blood Pressure 136/85 Pulse Oximetry Oxygen Delivery Method BMI result Body Mass Index 26.6 Labs 04/01/24 08:14 Imaging Radiology Impressions: ITS Impressions Hand X-Ray 04/04/24 14:04 IMPRESSION: Comminuted likely intra-articular fracture the proximal fifth metacarpal. No signs of fracture healing. Possible bone resorption/osteolysis in the area the fracture. Medications Medications Current Medications Acetaminophen (Acetaminophen 325 Mg Tablet) 650 mg PO Q6H PRN PRN Reason: Headache/Pain Mild Scale (1-3) Last Admin: 04/08/24 21:28 Dose: 650 mg Al Hydroxide/Mg Hydroxide (Magnesium Hydrox/Alum Hydrox 30 Ml Oral.Susp) 30 ml PO Q6H PRN PRN Reason: Heartburn/Nausea Benzocaine (Benzocaine 20 % Oral Gel 9 Gm Tube) 1 appl MUCOUS MEM QID PRN; Protocol PRN Reason: dental pain Last Admin: 04/06/24 21:02 Dose: 1 appl Bupropion HCl (Bupropion Hcl Xl 150 Mg Tab.Er.24h) 150 mg PO DAILY SUSY Last Admin: 04/08/24 09:34 Dose: 150 mg Clonidine HCl (Clonidine Hcl 0.1 Mg Tablet) 0.1 mg PO BID PRN; Protocol PRN Reason: Anxiety Last Admin: 04/09/24 02:55 Dose: 0.1 mg Docusate Sodium (Docusate Sodium 100 Mg Capsule) 100 mg PO BID PRN PRN Reason: Constipation Last Admin: 04/08/24 18:43 Dose: 100 mg Hydroxyzine HCl (Hydroxyzine Hcl 50 Mg Tablet) 100 mg PO BEDTIME SUSY Last Admin: 04/08/24 21:29 Dose: 100 mg Hydroxyzine HCl (Hydroxyzine Hcl 50 Mg Tablet) 50 mg PO TID@0900,1300,1700 SUSY Last Admin: 04/08/24 17:04 Dose: 50 mg Magnesium Hydroxide (Milk Of Magnesia 30 Ml Oral.Susp) 30 ml PO DAILY PRN PRN Reason: Constipation Last Admin: 04/04/24 14:13 Dose: 30 ml Mirtazapine (Mirtazapine 30 Mg Tablet) 30 mg PO BEDTIME SUSY Last Admin: 04/08/24 21:29 Dose: 30 mg Multi-Ingred Cream/Lotion/Oil/Oint (Mineral Oil/Petrolatum,White 106 Gm Tube) 1 appl TOPICAL DAILY SUSY; Protocol Last Admin: 04/08/24 10:00 Dose: 1 appl Tramadol HCl (Tramadol Hcl 50 Mg Tablet) 50 mg PO Q4H PRN PRN Reason: Pain, Severe (Pain Scale 7-10) Last Admin: 04/09/24 02:55 Dose: 50 mg Allergies Allergies Allergy/AdvReac Type Severity Reaction Status Date / Time No Known Allergies Allergy Verified 03/31/24 18:10 Assessment & Plan Assessment & Plan (1) MDD (major depressive disorder), recurrent episode, severe: Status: Acute Code(s): F33.2 - Major depressive disorder, recurrent severe without psychotic features (2) PTSD (post-traumatic stress disorder): Status: Acute Code(s): F43.10 - Post-traumatic stress disorder, unspecified (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 Plan: CV 15 minute safety checks encourage groups Start: Wellbutrin 75mg PO BID hydroxyzine 50mg PO TID discharge planning 04/02: active on unit, social with peers. Pt reports he continues to feeling depressed ; pt stated, I know if I left here today, I would do something to hurt myself. I'm trying to be proactive and would like [facility] services . logging worker, Alondra, notified. Pt reports he is trying to be hopeful . pt denies HI/VH/AH. denies any side effects from medication. continue current tx plan. 04/06: stable. no complaints or requests. change wellbutrin to XL and give all 150 mg in the morning, per pt request. add oragel for dental pain. otherwise continue current mgmt. 04/07: DC trazodone for nightmares, start remeron trial. otherwise continue current mgmt. provide info for getting ID, discharge prior to appointment next . planning for friday at the moment. 04/08: Social with peers. attending groups. future oriented. Pt reports feeling good today; pt stated, I feel like the meds are helping a lot. The Wellbutrin is giving me energy and I'm focused on improving my life. I'm trying to mentally prepare for leaving on Friday . Pt denies SI/HI/VH/AH. pt reports sleeping well. 04/09: Pt reports feeling miserable today; pt stated, I keep having nightmares and I wake up tired and irritated . Pt reports he no longer wants to take Remeron or clonidine d/t feeling they are not helping me ; pt requesting to trial Prozosin;risks/benefits reviewed. Pt continues to report feeling anxious about going to the senior care but trying to stay hopeful . Pt denies SI/HI/VH/AH. DC Remeron DC clonidine Start: Prozosin 2mg PO bedtime; monitor vitals. Patient educated on: diagnosis, medication risk/benefits and therapeutic strategies Informed Consent: understands Reason for continued inpatient stay Substantial Risk for: med/psych decompensation Time Spent With Patient Time: Total time managing care of this patient today _20___ minutes.
[2024-04-09] MEDS: Acetaminophen 325 MG TABLET 650 MG PO ×2 (09:47→18:20)
[2024-04-09] MEDS: hydrOXYzine HCL 50 MG TABLET PO ×3 (09:48→17:26)
[2024-04-09] MEDS: buPROPion HCl XL 150 MG TAB.ER.24H PO (09:49)
[2024-04-09] MEDS: Milk of Magnesia 30 ML ORAL.SUSP PO (18:21)
[2024-04-09 20:00] VITALS: BP 124/69; PULSE 76; RESP 16; TEMP 36.8; O2SAT 96
[2024-04-09] MEDS: hydrOXYzine HCL 50 MG TABLET 100 MG PO (20:32)
[2024-04-10 09:23] VITALS: BP 117/67; PULSE 73; RESP 16; TEMP 37; O2SAT 98
[2024-04-10] MEDS: hydrOXYzine HCL 50 MG TABLET PO ×3 (09:26→17:07)
[2024-04-10] MEDS: buPROPion HCl XL 150 MG TAB.ER.24H PO (09:26)
[2024-04-10] MEDS: Acetaminophen 325 MG TABLET 650 MG PO ×2 (09:27→15:31)
[2024-04-10] MEDS: traMADoL HCL 50 MG TABLET PO ×3 (09:27→20:10)
--- NOTE | 2024-04-10 11:13 | P.PNPSI_ITS ---
Subjective Subjective Date of Service: 04/10/24 Reason For Visit: Unspec depressive disorder Subjective Notes: Conditional Voluntary Interim History: patient does endorse some anxiety around discharging on Friday to [facility] and having ongoing nightmares. Significant motivation is getting connected with doctor's appointments on Friday with a primary care provider at [facility] and [facility] which can help with a referral to Psychiatry at [facility] for follow-up. Regarding nightmares, reports prazosin, Seroquel, trazodone, Remeron, clonidine either are not helpful or caused side effects. Was open to trialing low-dose Thorazine. Reports anxiety and agitation are under good control with Vistaril and Wellbutrin. Appetite good. Medication Compliance: Yes Side effects from medications: No Attending Groups: Intermittent Review of Systems Acute medical concerns: No Review of Systems Review of Systems Yes all other systems are reviewed and are negative Mental Status Exam Mental Status Exam Narrative: Pt is alert and oriented; behavior is cooperative, friendly and calm; dressed in casual attire; mood is described as depressed ; eye contact appropriate; Speech is normal rate, volume and prosody and not pressured; thought process is organized and goal directed; Thought content is on tx; otherwise pertinent to relevant topics and without any delusional content, paranoid ideations or grandiosity; denies SI/HI/VH/AH. Diagnostics Vital Signs (24Hr): Vital Signs - 24 hr 04/09/24 20:00 04/10/24 09:23 Temperature 98.3 F 98.6 F Pulse Rate 76 73 Respiratory Rate 16 16 Blood Pressure 124/69 117/67 Pulse Oximetry 96 98 Oxygen Delivery Method Room Air Room Air BMI result Body Mass Index 26.6 Labs 04/01/24 08:14 Imaging Radiology Impressions: ITS Impressions Hand X-Ray 04/04/24 14:04 IMPRESSION: Comminuted likely intra-articular fracture the proximal fifth metacarpal. No signs of fracture healing. Possible bone resorption/osteolysis in the area the fracture. Medications Medications Current Medications Acetaminophen (Acetaminophen 325 Mg Tablet) 650 mg PO Q6H PRN PRN Reason: Headache/Pain Mild Scale (1-3) Last Admin: 04/10/24 09:27 Dose: 650 mg Al Hydroxide/Mg Hydroxide (Magnesium Hydrox/Alum Hydrox 30 Ml Oral.Susp) 30 ml PO Q6H PRN PRN Reason: Heartburn/Nausea Benzocaine (Benzocaine 20 % Oral Gel 9 Gm Tube) 1 appl MUCOUS MEM QID PRN; Protocol PRN Reason: dental pain Last Admin: 04/06/24 21:02 Dose: 1 appl Bupropion HCl (Bupropion Hcl Xl 150 Mg Tab.Er.24h) 150 mg PO DAILY SUSY Last Admin: 04/10/24 09:26 Dose: 150 mg Docusate Sodium (Docusate Sodium 100 Mg Capsule) 100 mg PO BID PRN PRN Reason: Constipation Last Admin: 04/08/24 18:43 Dose: 100 mg Hydroxyzine HCl (Hydroxyzine Hcl 50 Mg Tablet) 100 mg PO BEDTIME SUSY Last Admin: 04/09/24 20:32 Dose: 100 mg Hydroxyzine HCl (Hydroxyzine Hcl 50 Mg Tablet) 50 mg PO TID@0900,1300,1700 SUSY Last Admin: 04/10/24 09:26 Dose: 50 mg Magnesium Hydroxide (Milk Of Magnesia 30 Ml Oral.Susp) 30 ml PO DAILY PRN PRN Reason: Constipation Last Admin: 04/09/24 18:21 Dose: 30 ml Multi-Ingred Cream/Lotion/Oil/Oint (Mineral Oil/Petrolatum,White 106 Gm Tube) 1 appl TOPICAL DAILY SUSY; Protocol Last Admin: 04/10/24 09:23 Dose: Not Given Prazosin HCl (Prazosin Hcl 1 Mg Capsule) 2 mg PO BEDTIME SUSY; Protocol Last Admin: 04/09/24 20:34 Dose: Not Given Tramadol HCl (Tramadol Hcl 50 Mg Tablet) 50 mg PO Q4H PRN PRN Reason: Pain, Severe (Pain Scale 7-10) Last Admin: 04/10/24 09:27 Dose: 50 mg Allergies Allergies Allergy/AdvReac Type Severity Reaction Status Date / Time No Known Allergies Allergy Verified 03/31/24 18:10 Assessment & Plan Assessment & Plan (1) MDD (major depressive disorder), recurrent episode, severe: Status: Acute Code(s): F33.2 - Major depressive disorder, recurrent severe without psychotic features (2) PTSD (post-traumatic stress disorder): Status: Acute Code(s): F43.10 - Post-traumatic stress disorder, unspecified (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 Plan: CV 15 minute safety checks encourage groups Start: Wellbutrin 75mg PO BID hydroxyzine 50mg PO TID discharge planning 04/02: active on unit, social with peers. Pt reports he continues to feeling depressed ; pt stated, I know if I left here today, I would do something to hurt myself. I'm trying to be proactive and would like [facility] services . therapeutic program worker, Alondra, notified. Pt reports he is trying to be hopeful . pt denies HI/VH/AH. denies any side effects from medication. continue current tx plan. 04/06: stable. no complaints or requests. change wellbutrin to XL and give all 150 mg in the morning, per pt request. add oragel for dental pain. otherwise continue current mgmt. 04/07: DC trazodone for nightmares, start remeron trial. otherwise continue current mgmt. provide info for getting ID, discharge prior to appointment next . planning for friday at the moment. 04/08: Social with peers. attending groups. future oriented. Pt reports feeling good today; pt stated, I feel like the meds are helping a lot. The Wellbutrin is giving me energy and I'm focused on improving my life. I'm trying to mentally prepare for leaving on Friday . Pt denies SI/HI/VH/AH. pt reports sleeping well. 04/09: Pt reports feeling miserable today; pt stated, I keep having nightmares and I wake up tired and irritated . Pt reports he no longer wants to take Remeron or clonidine d/t feeling they are not helping me ; pt requesting to trial Prozosin;risks/benefits reviewed. Pt continues to report [facility] but trying to stay hopeful . Pt denies SI/HI/VH/AH. DC Remeron DC clonidine Start: Prozosin 2mg PO bedtime; monitor vitals. 04/10/2024: Trial low-dose Thorazine at nighttime for sleep for/nightmares Reason for continued inpatient stay Substantial Risk for: rapid decompensation Time Spent With Patient Time: Total time managing care of this patient today ____ minutes.
[2024-04-10 20:00] VITALS: BP 113/72; PULSE 64; RESP 16; TEMP 36.9; O2SAT 98
[2024-04-10] MEDS: hydrOXYzine HCL 50 MG TABLET 100 MG PO (21:00)
[2024-04-11 08:00] VITALS: BP 117/72; PULSE 66; RESP 16; TEMP 36.8; O2SAT 97
[2024-04-11] MEDS: hydrOXYzine HCL 50 MG TABLET PO ×3 (09:03→17:30)
[2024-04-11] MEDS: buPROPion HCl XL 150 MG TAB.ER.24H PO (09:03)
[2024-04-11] MEDS: Milk of Magnesia 30 ML ORAL.SUSP PO (09:26)
--- NOTE | 2024-04-11 11:11 | P.PNPSI_ITS ---
Subjective Subjective Date of Service: 04/11/24 Reason For Visit: Unspec depressive disorder Interim History: Continues to endorse anxiety around discharging tomorrow to [facility] and having ongoing nightmares. Significant motivation is getting connected with doctor's appointments on Friday with a primary care provider at [facility] and [facility] which can help with a referral to Psychiatry at [facility] for follow-up. Regarding nightmares, did not trial Thorazine last night. Reports he does not need antipsychotics and therefore did not take low dose last night. Education provided around drug class, versus indications and dose range. Patient was ambivalent about trying Thorazine and feels that trazodone was helpful. Overall decided that he will try Thorazine tonight, this way he can compare Thorazine versus trazodone and choose 1 so he can have a prescription for same when he discharges tomorrow. Overall felt positive regarding this approach. Review of Systems Review of Systems Yes all other systems are reviewed and are negative Mental Status Exam Mental Status Exam Narrative: Pt is alert and oriented; behavior is cooperative, friendly and calm; dressed in casual attire; mood is described as depressed ; eye contact appropriate; Speech is normal rate, volume and prosody and not pressured; thought process is organized and goal directed; Thought content is on tx; otherwise pertinent to relevant topics and without any delusional content, paranoid ideations or grandiosity; denies SI/HI/VH/AH. Diagnostics Vital Signs (24Hr): Vital Signs - 24 hr 04/10/24 20:00 04/11/24 08:00 Temperature 98.5 F 98.2 F Pulse Rate 64 66 Respiratory Rate 16 16 Blood Pressure 113/72 117/72 Pulse Oximetry 98 97 Oxygen Delivery Method Room Air Room Air BMI result Body Mass Index 26.6 Labs 04/01/24 08:14 Imaging Radiology Impressions: ITS Impressions Hand X-Ray 04/04/24 14:04 IMPRESSION: Comminuted likely intra-articular fracture the proximal fifth metacarpal. No signs of fracture healing. Possible bone resorption/osteolysis in the area the fracture. Medications Medications Current Medications Acetaminophen (Acetaminophen 325 Mg Tablet) 650 mg PO Q6H PRN PRN Reason: Headache/Pain Mild Scale (1-3) Last Admin: 04/10/24 15:31 Dose: 650 mg Al Hydroxide/Mg Hydroxide (Magnesium Hydrox/Alum Hydrox 30 Ml Oral.Susp) 30 ml PO Q6H PRN PRN Reason: Heartburn/Nausea Benzocaine (Benzocaine 20 % Oral Gel 9 Gm Tube) 1 appl MUCOUS MEM QID PRN; Protocol PRN Reason: dental pain Last Admin: 04/06/24 21:02 Dose: 1 appl Bupropion HCl (Bupropion Hcl Xl 150 Mg Tab.Er.24h) 150 mg PO DAILY SUSY Last Admin: 04/11/24 09:03 Dose: 150 mg Chlorpromazine HCl (Chlorpromazine Hcl 25 Mg Tablet) 25 mg PO BEDTIME SUSY Last Admin: 04/10/24 22:04 Dose: Not Given Chlorpromazine HCl (Chlorpromazine Hcl 25 Mg Tablet) 25 mg PO BEDTIME PRN PRN Reason: nightmares Docusate Sodium (Docusate Sodium 100 Mg Capsule) 100 mg PO BID PRN PRN Reason: Constipation Last Admin: 04/08/24 18:43 Dose: 100 mg Hydroxyzine HCl (Hydroxyzine Hcl 50 Mg Tablet) 100 mg PO BEDTIME SUSY Last Admin: 04/10/24 21:00 Dose: 100 mg Hydroxyzine HCl (Hydroxyzine Hcl 50 Mg Tablet) 50 mg PO TID@0900,1300,1700 SUSY Last Admin: 04/11/24 09:03 Dose: 50 mg Magnesium Hydroxide (Milk Of Magnesia 30 Ml Oral.Susp) 30 ml PO DAILY PRN PRN Reason: Constipation Last Admin: 04/11/24 09:26 Dose: 30 ml Multi-Ingred Cream/Lotion/Oil/Oint (Mineral Oil/Petrolatum,White 106 Gm Tube) 1 appl TOPICAL DAILY SUSY; Protocol Last Admin: 04/11/24 09:16 Dose: Not Given Tramadol HCl (Tramadol Hcl 50 Mg Tablet) 50 mg PO Q4H PRN PRN Reason: Pain, Severe (Pain Scale 7-10) Last Admin: 04/10/24 20:10 Dose: 50 mg Allergies Allergies Allergy/AdvReac Type Severity Reaction Status Date / Time No Known Allergies Allergy Verified 03/31/24 18:10 Assessment & Plan Assessment & Plan (1) MDD (major depressive disorder), recurrent episode, severe: Status: Acute Code(s): F33.2 - Major depressive disorder, recurrent severe without psychotic features (2) PTSD (post-traumatic stress disorder): Status: Acute Code(s): F43.10 - Post-traumatic stress disorder, unspecified (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 Plan: CV 15 minute safety checks encourage groups Start: Wellbutrin 75mg PO BID hydroxyzine 50mg PO TID discharge planning 04/02: active on unit, social with peers. Pt reports he continues to feeling depressed ; pt stated, I know if I left here today, I would do something to hurt myself. I'm trying to be proactive and would like [facility] services . [employer] farm worker, Alondra, notified. Pt reports he is trying to be hopeful . pt denies HI/VH/AH. denies any side effects from medication. continue current tx plan. 04/06: stable. no complaints or requests. change wellbutrin to XL and give all 150 mg in the morning, per pt request. add oragel for dental pain. otherwise continue current mgmt. 04/07: DC trazodone for nightmares, start remeron trial. otherwise continue current mgmt. provide info for getting ID, discharge prior to appointment next . planning for friday at the moment. 04/08: Social with peers. attending groups. future oriented. Pt reports feeling good today; pt stated, I feel like the meds are helping a lot. The Wellbutrin is giving me energy and I'm focused on improving my life. I'm trying to mentally prepare for leaving on Friday . Pt denies SI/HI/VH/AH. pt reports sleeping well. 04/09: Pt reports feeling miserable today; pt stated, I keep having nightmares and I wake up tired and irritated . Pt reports he no longer wants to take Remeron or clonidine d/t feeling they are not helping me ; pt requesting to trial Prozosin;risks/benefits reviewed. Pt continues to report feeling anxious about going to the assisted but trying to stay hopeful . Pt denies SI/HI/VH/AH. DC Remeron DC clonidine Start: Prozosin 2mg PO bedtime; monitor vitals. 04/10/2024: Trial low-dose Thorazine at nighttime for sleep for/nightmares 04/11/24: Did not try thorazine. Overall decided that he will try Thorazine tonight, this way he can compare Thorazine versus trazodone and choose 1 so he can have a prescription for same when he discharges tomorrow. Overall felt positive regarding this approach. Reason for continued inpatient stay Substantial Risk for: rapid decompensation Time Spent With Patient Time: Total time managing care of this patient today ____ minutes.
[2024-04-11] MEDS: traMADoL HCL 50 MG TABLET PO ×2 (13:56→21:25)
[2024-04-11] MEDS: Acetaminophen 325 MG TABLET 650 MG PO (13:56)
[2024-04-11 20:00] VITALS: BP 133/69; PULSE 82; RESP 18; TEMP 36.9; O2SAT 98
[2024-04-11] MEDS: hydrOXYzine HCL 50 MG TABLET 100 MG PO (21:24)
[2024-04-11] MEDS: chlorproMAZINE HCl 25 MG TABLET PO ×2 (21:26→22:41)
--- NOTE | 2024-04-12 09:19 | PM.PSYDC ---
DS: Providers Provider Date of Service: 04/12/24 Date of admission: 03/31/24 17:51 Date of discharge: 04/12/24 Primary care physician: Unknown Physician Admitting clinician: Merle Crain Attending physician on admission: Alon Au Consults: 04/03/24 16:52 Consult to Hospitalist Routine Comment: Consulting Provider: Hospitalist Reason For Exam: Pt c/o of increased diarrhea and blood in stool. 04/05/24 06:00 Consult to Orthopedics Routine Consulting Provider: [facility] Reason for consultation: Boxer fracture 3-4 weeks ago. Pain. New imaging = comminuted nonhealing fx Has provider been notified: No Attending physician on discharge: Alon Au Discharging clinician: Merle Crain DS: Diagnosis Discharge Diagnosis (1) MDD (major depressive disorder), recurrent episode, severe: Status: Acute (2) PTSD (post-traumatic stress disorder): Status: Acute (3) Hemophilia A: Status: Acute Mental Status Exam Mental Status Exam Narrative: Pt is alert and oriented; behavior is cooperative and calm; dressed in casual attire; mood is described as good ; eye contact appropriate; Speech is normal rate, volume and not pressured, moderate speech impediment; thought process is organized and goal directed; Thought content is on tx; otherwise pertinent to relevant topics and without any delusional content, paranoid ideations or grandiosity; denies SI/HI/VH/AH. Data Imaging Diagnostic Imaging Impressions Hand X-Ray 04/04/24 14:04 IMPRESSION: Comminuted likely intra-articular fracture the proximal fifth metacarpal. No signs of fracture healing. Possible bone resorption/osteolysis in the area the fracture. DS: Summary Hospital Course Hospital Course: Patient is a 38 year old male with hx of Bipolar d/o, PTSD and hemophilia who presented to ER d/t suicidal ideation secondary to increased depression and life stressors. Per crisis report, pt was referred to [facility] ER on 03/30/24 from Abeba Rapp d/t being considered medically complex. On 02/26/24, pt attempted suicide by self inflicted deep cuts across his left forearm. Pt went into the [place]won after cutting himself with the intention of waiting until he bled out; pt fell asleep and woke up, began walking and was met by EMS, which he believes was called by a bystander who saw him walking on the side of the road. On 03/26/24 self presented to [facility] d/t suicidal ideation. Patient identified medical complexity related to hemophilia and current psychosocial stressors as primary triggers for suicide ideation. Pt reports he is unable to maintain steady employment d/t hemophilia and having to go to the hospital; he has made several attempts to apply to SSDI but has been declined. Pt reported suicidal ideation with plan to jump off the highest building I can find . Pt reported one prior suicide attempt in 2018 by medication overdose after becoming homeless. Pt does not currently have any outpatient psychiatric providers. During admission assessment, pt presents alert and oriented, calm, cooperative. Pt reports feeling depressed ; pt stated, I went to the hospital because I was worried I was going to kill myself and wanted to prevent that . Pt reports he feels depressed from life ; pt stated, being alone, not having money or a place to live and having hemophilia makes me depressed. I don't have Bipolar d/o; I was misdiagnosed . Pt denies any hx of lucina, issues with sleep, or impulsive behavior. Pt reports his moods are low with out any highs . Pt reports hx of taking psychiatric medications but has not been on anything other than hydroxyzine for the past 5 years . Pt reports he smokes marijuana daily; UTOX positive for cannabinoids; denies any other substance use. pt reports he is not in contact with any family members for the past 5 years because they are awful and useless . Pt reports suicidal ideation with no plan. denies HI/VH/AH. Pt states he would like referral to outpatient therapist and prescriber. Pt future oriented, pt stated, I have an appointment on April 14 with my PCP. I'm hoping he can refer me to the [facility]. I'm hopeful that program can help me . T/W discussed pt may want to look into support groups for individuals with hemophilia. Pt expressed interest in psychiatric medication that can assist in depression and energy ; reviewed risks/benefits of Wellbutrin; pt agreed to trial. During hospital course, CV 15 minute safety checks encourage groups Start: Wellbutrin 75mg PO BID hydroxyzine 50mg PO TID discharge planning active on unit, social with peers. Pt reports he continues to feeling depressed ; pt stated, I know if I left here today, I would do something to hurt myself. I'm trying to be proactive and would like [facility] services . dairy farmworker, Alondra, notified. Pt reports he is trying to be hopeful . pt denies HI/VH/AH. denies any side effects from medication. continue current tx plan. stable. no complaints or requests. change wellbutrin to XL and give all 150 mg in the morning, per pt request. add oragel for dental pain. otherwise continue current mgmt. DC trazodone for nightmares, start remeron trial. otherwise continue current mgmt. provide info for getting ID, discharge prior to appointment next . planning for friday at the moment. Social with peers. attending groups. future oriented. Pt reports feeling good today; pt stated, I feel like the meds are helping a lot. The Wellbutrin is giving me energy and I'm focused on improving my life. I'm trying to mentally prepare for leaving on Friday . Pt denies SI/HI/VH/AH. pt reports sleeping well. Pt reports feeling miserable today; pt stated, I keep having nightmares and I wake up tired and irritated . Pt reports he no longer wants to take Remeron or clonidine d/t feeling they are not helping me ; pt requesting to trial Prozosin;risks/benefits reviewed. Pt continues to report feeling anxious about going to the residential but trying to stay hopeful . Pt denies SI/HI/VH/AH. DC Remeron DC clonidine Start: Prozosin 2mg PO bedtime; monitor vitals. Trial low-dose Thorazine at nighttime for sleep for/nightmares Did not try thorazine. Overall decided that he will try Thorazine tonight, this way he can compare Thorazine versus trazodone and choose 1 so he can have a prescription for same when he discharges tomorrow. Overall felt positive regarding this approach. Pt reports feeling good today; pt stated, he is trying to stay positive . Pt reported he does not want a script for thorazine or trazodone d/t feeling that they don't help . Pt denies SI/HI/VH/AH. Pt reports he plans on following up with his outpatient providers. Time spent discussing smoking cessation with patient: 3 to 10 minutes Status at Discharge Cognitive/behavioral status at discharge: Patient was interviewed prior to discharge and found to be fully oriented and without SI or HI. Patient has insight and demonstrates good judgment in terms of wanting to pursue treatment. Patient has a safety plan that includes presenting to the closest ER or calling 911 if feeling unsafe. Functional status at discharge: independent ambulation Overall status at discharge: patient is back to baseline Time Spent with Patient Time attestation: Total time managing care of this patient today _20___ minutes. Time spent: Less than 30 minutes Discharge Plan Discharge Anticipated Discharge Date/Time: 04/12/24 10:00 Patient Disposition: Nursing Home Discharge Diagnosis: MDD, PTSD [place] [facility] [Other] - 04/19/24 9:00 am [facility] (Psychiatry) [Other] - 1 Week (*A referral has been placed to [facility] [place] [facility] on your behalf. Please follow up at the phone number listed above in order to obtain the appointment information. -The referrals will be discussed with you during your appointment on 04/14/24 at [facility]. ) [facility] [Other] - 1 Week (If you need help finding a primary care provider, please call the number above.) Discharge Medications: New bupropion HCl 150 mg Tablet Extended Release 24 Hr 150 mg PO DAILY 30 Days Qty: 30 0RF hydroxyzine HCl 50 mg Tablet 100 mg PO BEDTIME 30 Days Qty: 60 0RF hydroxyzine HCl 50 mg Tablet 50 mg PO TID@0900,1300,1700 30 Days Qty: 90 0RF tramadol 50 mg Tablet 50 mg PO TID PRN (Reason: Pain, Severe (Pain Scale 7-10)) 7 Days Qty: 21 1RF Discharge Orders: Discharge Order (Routine); Ordered 04/12/24 Ordered By: Merle Crain Diet: Regular diet Activity on Discharge: As tolerated Stand Alone Forms: Patient Portal Discharge page, Community Support Print Language: Arabic Care Plan Goals: Maintain mood and safe behaviors Take medications as prescribed Practice coping skills Continue with outpatient providers and reach out to them as needed Health Concerns: Mood stability and behaviors Plan of Treatment: Follow up with your PCP, psychiatric provider and other outpatient providers regarding above concerns Take medications as prescribed Assessment: Patient was interviewed prior to discharge and found to be fully oriented and without SI or HI. Patient has insight and demonstrates good judgment in terms of wanting to pursue treatment. Patient has a safety plan that includes presenting to the closest ER or calling 911 if feeling unsafe. Discharge Date/Time: 04/12/24 10:28
[2024-04-12 09:33] VITALS: BP 111/64; PULSE 90; RESP 18; TEMP 37.1; O2SAT 97
[2024-04-12] MEDS: buPROPion HCl XL 150 MG TAB.ER.24H PO (09:34)
[2024-04-12] MEDS: hydrOXYzine HCL 50 MG TABLET PO (09:34)
== END 2024-04-12 10:28 | disposition home or self-care (01) | DRG 751 ==
PROVIDERS: Psychiatry & Neurology Psychiatry; Admitting Provider Psychiatry & Neurology Psychiatry; Responsible Provider Registered Nurse; Visit Provider Psychiatry & Neurology Psychiatry
DX: F33.2 Major depressive disorder, recurrent severe without psychotic features (principal); D66 Hereditary factor VIII deficiency; R45.851 Suicidal ideations; F43.10 Post-traumatic stress disorder, unspecified; Z91.51 Personal history of suicidal behavior; Z59.02 Unsheltered homelessness; Z79.899 Other long term (current) drug therapy
CPT/HCPCS: 36415; 73120; 80053; 80061

== ENCOUNTER → 2024-03-31 17:51 | Outpatient (BNV) | payer OTHER, SELFPAY | PROVIDERS: Admitting Provider Psychiatry & Neurology Psychiatry; Responsible Provider Registered Nurse; Visit Provider Physician Assistant | DX: S62.314A Displaced fracture of base of fourth metacarpal bone, right hand, initial encounter for closed fracture (principal); S62.316A Displaced fracture of base of fifth metacarpal bone, right hand, initial encounter for closed fracture | CPT/HCPCS: 99222 ==

== ENCOUNTER → 2024-03-31 17:51 | Outpatient (BNV) | payer OTHER, SELFPAY | PROVIDERS: Admitting Provider Psychiatry & Neurology Psychiatry; Responsible Provider Registered Nurse; Visit Provider Registered Nurse | DX: F33.2 Major depressive disorder, recurrent severe without psychotic features (principal); F43.11 Post-traumatic stress disorder, acute; D66 Hereditary factor VIII deficiency | CPT/HCPCS: 90792; 99231; 99232; 99238 ==

== ENCOUNTER → 2024-03-31 17:51 | Outpatient (BNV) | payer OTHER, SELFPAY | PROVIDERS: Admitting Provider Psychiatry & Neurology Psychiatry; Responsible Provider Registered Nurse; Visit Provider Student in an Organized Health Care Education/Training Program | DX: Z02.2 Encounter for examination for admission to residential institution (principal) | CPT/HCPCS: 99429 ==